=== PATIENT | female | born 1975 | race African-American/Black ===

== ENCOUNTER 2024-07-07 16:42 | Emergency (ER) | payer SELFPAY ==
[2024-07-07] VITALS (14 sets, daily range): BP systolic 163–186; BP diastolic 98–154; PULSE 78–96; RESP 15–22; TEMP 36.6–36.8; O2SAT 98–100
--- NOTE | ~2024-07-07 | XR_ITS ---
XR chest 2V Ordering provider: Sona Marie PA-C History: 48 years Female with . cp . Comparison: None. FINDINGS: MEDIASTINUM: The cardiac silhouette is not enlarged. LUNGS: No infiltrates, effusions or pneumothorax. OTHER: No free air under the diaphragm. Degenerative changes of the spine with loss of volume of T11 which is chronic. MRI evaluation advisedk pancreas are normal. IMPRESSION: No acute cardiopulmonary pathology. Reviewed, dictated and finalized at location A.
--- NOTE | 2024-07-07 16:55 | ECG_ITS ---
Test Date: 2024-07-07 17:18:52 Measurements Intervals [place] Rate: 88 P: 44 NE: 150 QRS: -3 QRSD: 89 T: 6 QT: 347 QTc: 420 Interpretive Statements SINUS RHYTHM POSSIBLE LEFT ATRIAL ENLARGEMENT [-0.1mV P-WAVE IN V1/V2] NONSPECIFIC ST-T WAVE CHANGES No previous ECG available for comparison Electronically Signed On 07-09-2024 15:13:55 CDT by Shin Corona M.D.
--- OUTSIDE RECORDS SUMMARY | 2024-07-07 17:04 | XMS_ITS | Clinical Summary ---
Author Organization [facility] Address [address] [place] [address] Care Team Providers Care Fast Food Assistant Restaurant Manager Name Role Phone None, Provider Primary Care Provider Unavaila ble Allergies No known active allergies Social History Tobacco Use Types Packs/Day Years Used Date Smoking Tobacco: Some Days Smokeless Tobacco: Never Alcohol Use Standard Drinks/Week Comments Yes 0 (1 standard drink = 0.6 oz pur e alcohol) occasional Comments No Sex and Gender Information Value Date Recorded Sex Assigned at Not on file Legal Sex Female 12:18 PM CDT Gender Identity Not on file Sexual Orientation Not on file Last Filed Vital Signs Vital Sign Reading Time Taken Comments Blood Pressure 143/98 06/05/2021 1:07 PM CDT Pulse 72 06/05/2021 1:07 PM CDT Temperature 37.3 C (99.2 F) 06/05/2021 11:27 AM CDT Respiratory Rate 18 06/05/2021 1:07 PM CDT Oxygen Saturation 100% 06/05/2021 1:07 PM CDT Inhaled Oxygen Concentration - - Weight 116 kg (255 lb 11.7 oz) 06/05/2021 11:27 AM CDT Height 162.6 cm (5' 4 ) 06/05/2021 11:27 AM CDT Body Mass Index 43.9 06/05/2021 11:27 AM CDT Plan of Treatment Health Maintenance Due Date Last Done Comments Cervical Cancer Screening Pap Smear (Age 30 to 64) Every 3 Years 1976 Colorectal Cancer Screening Colonoscopy (10 Years) 1976 Annual Physical 07/09/1979 Hepatitis C 1994 Hepatitis B Vaccines (1 of 3 - 19+ 3-dose series) 07/09/1995 Pneumococcal Vaccine: Pediatrics (0 to 5 Years) and At-Risk Patients (6 to 49 Years) (1 of 2 - PCV) 07/09/1995 Cervical Cancer Screening Pap with HPV Testing (Age 30 to 64) Every 5 Years 2006 Cervical Cancer Screening with HPV 2006 Mammogram Screening 2016 COVID-19 Vaccine ( - 2023- season) 2023 DTaP, Tdap and Td Vaccines (7 - Td or Tdap) 11/04/2025 11/05/2015, 12/06/1986, 10/28/1981, Additional history exists Meningococcal B Vaccine Aged Out No l onger eligible based on patient's age to complete this topic Meningococcal Vaccine Aged Out No cliff katlin eligible based on patient's age to complete this topic RSV Immunizations Under 20 Months Aged Out No longer eligible based on patient's age to complete this topic Insurance [place] [facility] Care Teams Fast Food Assistant Restaurant Manager Relationship Specialty Start Date End Date None, Provider, PCP - General 06/05/21
--- OUTSIDE RECORDS SUMMARY | 2024-07-07 17:04 | XMS_ITS | Referral Summary ---
Author Organization [facility] Address [address] [place] [address] Care Team Providers Care Second Language Tutor Name Role Phone Antonio Rodriguez MD Primary Care Provider + [phone] Ankit Smith MD Unavailable [phone] Allergies Active Allergy Reactions Criticality Noted Date Comments Aspirin Stomach upset Low Metoprolol Other (See comments) High 09/14/2021 Adrenal insufficiency Medications hydrOXYzine (ATARAX) 25 mg tabletIndicati ons:anxiety Take 1 tablet (25 mg total) by mouth 3 (three) times a day as needed for anxiety 45 tablet 03/12/19 22 Active diphenhydrAMIN E (BENADRYL) 25 mg capsule Take 1 tablet/capsul e (25 mg total) by mouth nightly as needed for allergies (takes prnd for sinus drainage) Active famotidine (PEPCID) 10 mg tabletIndicati ons:gastroesop hageal reflux disease Take 1 tablet (10 mg total) by mouth 2 (two) times a day as needed for heartburn Active NIFEdipine (NIFEdipine CC) 30 mg 24 hr tablet Take 1 tablet (30 mg total) by mouth daily Active oxyBUTYnin (DITROPAN) 5 mg tabletIndicati ons:Urinary frequency TAKE 1 TABLET (5 MG TOTAL) BY MOUTH DAILY. 30 tablet 06/16/19 25 025 Active oxyBUTYnin (DITROPAN) 5 mg tabletIndicati ons:Urinary frequency Take 1 tablet (5 mg total) by mouth daily 30 tablet 4 03/19/19 25 025 Discontinued Active Problems Problem Noted Date Diagnosed Date Abnormal vaginal bleeding 06/02/2023 Abnormal uterine bleeding 05/16/2023 Hyponatremia 03/11/2021 Essential (primary) hypertension 03/11/2021 Acute cystitis without hematuria 03/11/2021 Hypomagnesemia 03/11/2021 Hypokalemia 03/11/2021 Class 3 severe obesity due t o excess calories with serious comorbidity and body mass index (BMI) of 40.0 to 44.9 in adult 03/11/2021 COVID-19 virus infection 03/11/2021 Other chest pain 03/11/2021 Supraventricular tachycardia 12/25/2013 Anxiety 12/25/2013 Chronic pain 12/25/2013 Degeneration of intervertebral disc of cervical region 12/25/2013 Cervicalgia 09/28/2013 Lumbago 09/28/2013 Generalized anxiety disorder Hyperglycemia Leukocytosis Resolved Problems Problem Noted Date Diagnosed Date Resolved Date Ankle pain 01/07/2015 03/11/2021 Pain of foot 03/26/2014 03/11/2021 Social History Tobacco Use Types Packs/Day Years Used Date Smoking Tobacco: Every Day Cigars Started: 2012 Smokeless Tobacco: Never Tobacco Cessation:Ready to Q uit: Not Asked; Counseling Given: Not Answered AUDIT-C Answer Date Recorded Q1: How often do you have a drink containing alcohol? Monthly or less 06/02/2023 Q2: How many drinks containi ng alcohol do you have on a typical day when you are drinking? Patient does not drink Q3: How often do you have si x or more drinks on one occasion? Never 06/02/2023 Personal Safety Answer Date Recorded Have you ever been in or are you currently in a harmful physical or emotional relationship or is someone making you feel afraid or unsafe? Denies 06/02/2023 Comments No Sex and Gender Information Value Date Recorded Sex Assigned at Not on file Legal Sex Female 8:29 PM PERFUMER Gender Identity Not on file Sexual Orientation Not on file Last Filed Vital Signs Vital Sign Reading Time Taken Comments Blood Pressure 142/96 07/05/2023 9:50 AM CDT Pulse 48 06/02/2023 9:15 AM CDT Temperature 36.4 C (97.6 F) 06/02/2023 8:45 AM CDT Respiratory Rate 18 06/02/2023 9:15 AM CDT Oxygen Saturation 100% 06/02/2023 9:15 AM CDT Inhaled Oxygen Concentration - - Weight 108.4 kg (239 lb) 07/05/2023 9:50 AM CDT Height 162.6 cm (5' 4.02 ) 07/05/2023 9:50 AM CD T Body Mass Index 41 07/05/2023 9:50 AM CDT Plan of Treatment Not on file Procedures Procedure Name Priority Date/Time Associated Diagnosis Comments HIGH RISK HPV DNA DETECTION WITH GENOTYPING Routine 12/15/2022 2:05 PM CDT Abnormal uterine bleeding (AUB) from Last 3 Months or Most Recently Relevant to Health Maintenance Results * High Risk HPV DNA Detection with Genotyping (Molecular component) (12/15/2022 2:05 PM CDT) HPV HR 16 Not Detected Not Detected [facility] Comment:Testing performed by : [facility], [address] [place]., [address] HPV HR 18 Not Detected Not Detected MATTHEW Comment:Testing performed by : [facility], [address] [place]., [address] HPV HR Non 16/18 Not Detected Not Detected [facility]W Comment: Interpretive Data Nucleic acid amplification for detection of high-risk Human Papilloma virus (HPV) is performed by the Sherry Jacki 6800 HPV test. This assay specifically detects HPV-16 and HPV-18 genotypes. The following HPV genotypes are detected as high-risk HPV: HPV-31, 33, 35, ,39, 45, 51, 52, 56, 58, 59, 66, and 68. This assay has been approved by the [place] Food and Drug Administration for detection of HPV in cervical specimens collected by a physician using an endocervical brush/spatula or cervical broom and placed in the ThinPrep Pap Test PreservCyt collection containers. The performance characteristics of this test have been verified by the [facility] Molecular Infectious Disease laboratory. Correlate with separately reported cytology results, as applicable. Interpretive data last revised 22 Testing performed by: [facility], [address] [facility], [place]., [address] Endocervical 12/15/2022 2:05 PM CDT 12/16/2022 12:30 PM CDT Narrative MATTHEW CORRIGAN - 12/16/2022 11:29 PM CDT Clinical history and diagnosis->screen Testing type->Screening Last menstrual period (date if known)->11/29/22 Ankit Smith MD LAB BODY FLUIDS AND STO OLS ORDERABLES Final Result MATTHEW [address] [facility] [place] [address] [facility] from Last 3 Months or Most Recently Relevant to Health Maintenance Insurance [facility] Advance Directives For more information, please contact: [phone] * Full Code (Latest Code Status on File) Date Activated Date Inactivated Comments 03/11/2021 5:39 AM 03/12/2021 8:37 PM Care Teams Second Language Tutor Relationship Specialty Start Date End Date Antonio Rodriguez MD PCP - General Internal Medicine 03/11/22 Ankit Smith MD [address] [facility] [address] [address] Consulting Physician Obstetrics and Gynecology 06/02/23
--- OUTSIDE RECORDS SUMMARY | 2024-07-07 17:04 | XMS_ITS | Clinical Summary ---
Author Organization [facility] Address [address] [place] [address] Care Team Providers Care Patcher Wood Welder Name Role Phone Antonio Rodriguez MD Primary Care Provider + [phone] Ankit Smith MD Unavailable [phone] Allergies Active Allergy Reactions Criticality Noted Date [...] 01/07/2015 03/11/2021 Pain of foot 03/26/2014 03/11/2021 Surgical History Surgery Date Site/Laterality Comments MD DELIVERY ONLY three Section - (Added by TW Conv) MD NEUROPLASTY &/TRANSPOS MEDIAN NRV CARPAL TUNNE 02/28/2011 - 02/28/2012 Bilateral Neuroplasty Decompression Median Nerve At Carpal Tunnel - (Added by TW Conv) SECTION x3 TUBAL LIGATION FASCIOTOMY 03/11/2022 Left ENDOSCOPIC FASCIOTOMY - PLANTER HYSTEROSCOPY DILATION AND CURETTAGE OF UTERUS Medical History Medical History Date Comments Hypertension patient states h x of heart workup with echo and stress test all normal Anxiety takes med prn Allergic rhinitis occassionally uses flonase, Benadryl GERD (gastroesophageal reflu x disease) occassional with certain tapan ds, takes prn zantac Abnormal uterine bleeding (AUB) Wears glasses Last menstrual period (LMP) > 10 days ago 04/10/2023 Family History Medical History Relation Name Comments Hypertension Father Cancer Mother Family history of cancer - (Added by TW Conv) Hypertension Mother Family history of hypertension - (Added by TW Conv) Breast cancer Mother's Sister Ovarian cancer Neg Hx Relation Name Status Comments Father Alive Mother Alive Mother's Sister Social History Tobacco Use Types Packs/Day Years [...] on file Legal Sex Female 8:29 PM MANAGER PMO Gender Identity Not on file Sexual Orientation Not on file Obstetrics History Para Term AB IAB SAB Ectopic Multiple Livin g Live Births 3 3 3 Date Outcome GA Total Labor Labor/2nd/3rd Weight Sex Type Anes PTL Karine A1 A5 Name Clin Para Para Para Last Filed Vital Signs Vital Sign Reading [...] 07/05/2023 9:50 AM CDT Plan of Treatment Health Maintenance Due Date Last Done Comments Breast Cancer Screening-Mammogram 1976 Colon Cancer Screening-Colonoscopy 1976 Depression Screening 1976 Hepatitis C Screening 1976 Hepatitis B Screening 1994 Regular Well Visit/Exam 18-64 1994 Pneumococcal vaccine <65 (1 of 2 - PCV) 07/09/1995 Cervical Cancer Screening 12/16/20232022, 12/15/2022, 06/27/2013 Influenza Vaccine (Season Ended) 2024 DTaP/Tdap/Td Vaccine (7 - Td or Tdap) 11/04/2025 11/05/2015, 12/06/1986, 10/28/1981, Additional history exists Procedures Procedure Name Priority Date/Time Associated Diagnosis Comments HIGH RISK HPV DNA DETECTION WITH GENOTYPING Routine 12/15/2022 2:05 PM CDT Abnormal uterine bleeding (AUB) from Last 3 Months or Most Recently Relevant to Health Maintenance Results * High Risk HPV DNA Detection with Genotyping (Molecular component) (12/15/2022 2:05 PM CDT) HPV HR 16 Not Detected Not Detected [facility] Comment:Testing performed by : [facility], [address] [place]., [address] HPV HR 18 Not Detected Not Detected [facility]W Comment:Testing performed by : [facility], [address] [place]., [address] HPV HR Non 16/18 Not Detected Not [...] this test have been verified by the [facility] Molecular Infectious Disease laboratory. Correlate with separately reported cytology results, as applicable. Interpretive data last revised 22 Testing performed by: [facility], [address] [place]., [address] Endocervical 12/15/2022 2:05 PM CDT 12/16/2022 12:30 PM CDT Eladio CASTRO - 12/16/2022 11:29 PM CDT Clinical history and diagnosis->screen Testing type->Screening Last menstrual period (date if known)->11/29/22 Ankit Smith MD LAB BODY FLUIDS AND STO OLS ORDERABLES Final Result MATTHEW [address] [facility] Department [place] [address] [facility] from Last 3 Months or Most Recently Relevant to Health Maintenance Insurance [facility] Advance Directives For more information, please contact: [phone] * Full Code (Latest Code Status on File) Date Activated Date Inactivated Comments 03/11/2021 5:39 AM 03/12/2021 8:37 PM Care Teams Patcher Wood Welder Relationship Specialty Start Date End Date Antonio Rodriguez MD PCP - General Internal Medicine 03/11/22 Ankit Smith MD [address] [facility] [place] [address] Consulting Physician Obstetrics and Gynecology 06/02/23
--- NOTE | 2024-07-07 17:22 | ED_ITS ---
HPI - Chest Pain General Chief Complaint: Chest Pain Stated Complaint: Chest pain x 1 hour History of Present Illness HPI narrative: 48-year-old female with a reported history of anxiety, SVT, hypertension presents to the emergency department via EMS from work for concerns for anxiety/panic attack. Patient states today she has been rushing around running errands. When she got to work around 2:00 p.m, she was sitting in her desk and developed a fast heart rate, shortness of breath and ?tightness? in her left wrist. No injury trauma nor left wrist. She states she has history of anxiety and is concerned she may have been having an anxiety attack. She did have 2 cups of coffee prior to her symptom onset and states she had not had anything to eat today. She states this episode lasted approximately 8 minutes and has since resolved. She denies chest pain, cough, congestion, abdominal pain, numbness, weakness, tingling, lower extremity edema, history of VTE, hemoptysis. She has an IUD in place. Patient states she used to take hydroxyzine 3 times daily for anxiety but discontinued this for months ago because she felt better. She has not followed up with her PCP regarding this and has not notified her PCP she discontinued this medication. She has no complaints at the time of my evaluation other than ?tightness? in her left wrist. Denies chest pain or current dyspnea. Related Data Allergies Allergy/AdvReac Type Severity Reaction Status Date / Time No Known Allergies Allergy Verified 07/07/24 17:41 Review of Systems 2 Review of Systems: All systems reviewed & are unremarkable except as noted in HPI and below Exam 2 Narrative: GENERAL: Well-appearing, well-nourished, and in no acute distress. HEAD: Normocephalic, atraumatic. EYES: EOMI. ENT: Nares clear, no rhinorrhea or epistaxis. Mucous membranes moist. NECK: Supple. CHEST: Clear to auscultation. No respiratory distress. HEART: Regular rate and rhythm. No murmur heard. Normal peripheral pulses. ABDOMEN: Soft, nontender, nondistended, normal active bowel sounds. EXTREMITIES: Normal range of motion. No edema. No tenderness to the left wrist, no deformity, no edema. Full active and passive range of motion, no erythema or warmth. Radial pulse 2 +. Sensation intact. Radial, median and ulnar nerves are intact. SKIN: Warm, dry, no rash. NEURO: No focal deficits. Alert and oriented x3 Course Vital Signs Vital signs: Vital Signs Temperature 97.9 F 07/07/24 16:48 Pulse Rate 95 07/07/24 16:48 Respiratory Rate 16 07/07/24 16:48 Blood Pressure 172/108 H 07/07/24 16:48 Pulse Oximetry 100 07/07/24 16:48 Oxygen Delivery Room Air 07/07/24 16:48 Temperature 97.9 F 07/07/24 16:48 Pulse Rate 83 07/07/24 18:17 Respiratory Rate 21 H 07/07/24 18:17 Blood Pressure 163/104 H 07/07/24 19:27 Pulse Oximetry 100 07/07/24 17:40 Oxygen Delivery Room Air 07/07/24 17:40 MDM - Chest Pain MDM Narrative Medical decision making narrative: 48-year-old female with history of hypertension, SVT, presents to the emergency department for palpitations and shortness of breath that developed today while at work. Patient also reporting more ?tightness in her left wrist with no injury or trauma. Upon arrival to the ED patient is resting comfortably in the exam bed, smiling, pleasant and cooperative and in no acute distress. Triage vitals with hypertension of 172/108, otherwise unremarkable. She has no active complaints other than ?tightness? in her left wrist. She denies any chest pain or shortness of breath currently. EKG shows normal sinus rhythm with rate of 88 ppm, normal IN interval, normal QRS duration, normal QTC, nonspecific T-wave abnormality, no acute ischemic changes. Troponin undetectable x2. CBC without leukocytosis or anemia. Chemistries with mild elevation in creatinine of 1.08, normal BUN, patient is given a L of fluids for dehydration. No electrolyte derangements. Mag within normal limits. Lipase and UA are normal. is negative. Chest x-ray shows no acute cardiopulmonary findings. Perc rule negative. Patient updated on results. She received IV fluids and Ativan with improvement in symptoms and resting comfortably in exam bed. Tightness in wrist resolved., Suspect anxiety causing sx and likely carpopedal spasm, verses paroxysmal episode of SVT, however she has had no arrhythmias in the emergency department. Advised her to continue her home medications, will provide hydroxyzine p.r.n. advised to follow-up closely with her PCP. Discussed strict ED return precautions. She is agreeable with the plan verbalized understanding. Discharged in stable condition Lab Data 07/07/24 17:20 07/07/24 17:20 Labs: Lab Results 07/07/24 07/07/24 Range/Units 17:20 17:26 WBC 9.1 (4.5-10.0) K/mm3 RBC 4.40 (4.2-5.4) M/mm3 Hgb 14.7 (12.0-15.0) g/dL Hct 43.2 (37.0-47.0) % MCV 98.2 (80-100) fl MCH 33.4 (26-34) pg MCHC 34.0 (32-36) g/dl RDW 13.1 (11.5-14.5) % Plt Count 180 (150-375) k/mm3 MPV 10.4 (7.4-10.4) fl Immature Gran % (Auto) 0.2 (0-0.5) % Neut % (Auto) 73.9 H (45.5-73.1) % Lymph % (Auto) 14.9 L (18.3-44.2) % [place] % (Auto) 10.2 H (2.6-8.5) % Eos % (Auto) 0.4 (0-4.4) % Baso % (Auto) 0.4 (0.2-1.2) % Lymph # (Auto) 1.36 (0.9-3.2) K/mm3 [place] # (Auto) 0.9 H (0.1-0.6) K/mm3 Eos # (Auto) 0.0 (0-0.3) K/mm3 Baso # (Auto) 0.0 (0.0-0.1) K/mm3 Abs Immat Gran (auto) 0.02 (0.00-0.031) K/mm3 Absolute Neuts (auto) 6.7 (1.3-6.7) K/mm3 Absolute Nucleated RBC 0.000 (0.0-0.012) K/mm3 Nucleated RBC % 0.0 (0.0-0.2) % PT 13.4 (11.1-14.7) Seconds INR 1.0 APTT 25.4 (22.3-36.8) Seconds Sodium 138 (137-145) mmol/L Potassium 4.1 (3.4-5.0) mmol/L Chloride 107 (98-107) mmol/L Carbon Dioxide 24 (22-30) mmol/L Anion Gap 7 (4-12) mmol/L BUN 16 (7-17) mg/dL Creatinine 1.08 H (0.7-1.0) mg/dL Estim Creat Clear Calc 80 ml/min Estimated GFR 54 L (59 - ) Glucose 84 (65-110) mg/dL Calcium 9.0 (8.4-10.2) mg/dL Magnesium 2.3 (1.6-2.3) mg/dL Total Bilirubin 0.5 (0.2-1.3) mg/dL AST 35 (14-36) U/L ALT 19 (6-35) U/L Alkaline Phosphatase 59 (38-126) U/L Troponin I < 0.012 (0.000-0.034) ng/mL NT-Pro-B Natriuret Pep 56 (19.9-100) pg/mL Total Protein 8.0 (6.3-8.2) g/dL Albumin 4.3 (3.5-5.1) g/dL Lipase 72 (23-300) U/L Urine Color Yellow (Yellow) Urine Appearance Clear (Clear) Urine pH 6.5 (5.0-9.0) Ur Specific [place] 1.003 (1.001-1.035) Urine Protein Negative (Negative) mg/dL Urine Glucose (UA) Negative (Negative) mg/dL Urine Ketones Negative (Negative) mg/dL Ur Blood (Man) Negative (Negative) Urine Nitrate Negative (Negative) Urine Bilirubin Negative (Negative) Urine Urobilinogen 0.2 (<2.0) mg/dL Leukocyte Esterase Rfl Negative (Negative) ANGELIQUE/UL POC Urine HCG, Qual Negative (Negative) Discharge Plan Discharge Clinical Impression: Anxiety Patient Disposition: Home Condition: Stable Instructions: Antibiotic Form, Anxiety (ED) Additional Instructions: You were evaluated in the emergency department for concerns for anxiety attack. Her workup here is reassuring, you did look slightly dehydrated nor given IV fluids. Please make sure to drink plenty fluids including water, Gatorade and Pedialyte. Please take hydroxyzine as needed. Follow-up closely with her primary care provider. Return to the emergency department if you develop chest pain, shortness of breath, palpitations, or other concerning symptoms. Patient Language: Irish Prescriptions: New hydroxyzine HCl 25 mg tablet 25 mg PO QID PRN (Reason: anxiety) Qty: 14 0RF Follow-up/Referrals: PHYSICIAN,[employer] [Primary Care Provider] -
[2024-07-07 17:28] LABS: BEDSIDEPREGUCG Negative (Negative)
[2024-07-07 17:34] LABS: Basophils Percent Auto 0.4 % (0.2-1.2); Eosinophils Percent Auto 0.4 % (0-4.4); Hematocrit 43.2 % (37.0-47.0); Hemoglobin 14.7 g/dL (12.0-15.0); Immature Granulocyte Absolute 0.02 K/mm3 (0.00-0.031); Immature Granulocyte Percent A 0.2 % (0-0.5); Lymphocytes Absolute Auto 1.36 K/mm3 (0.9-3.2); Lymphocytes Percent Auto 14.9 % (18.3-44.2); Mean Corpuscular Hemoglobin 33.4 pg (26-34); Mean Corpuscular Volume 98.2 fl (80-100); Mean Platelet Volume 10.4 fl (7.4-10.4); Monocytes Absolute Auto 0.9 K/mm3 (0.1-0.6); Monocytes Percent Auto 10.2 % (2.6-8.5); Neutrophils Absolute Auto 6.7 K/mm3 (1.3-6.7); Neutrophils Percent Auto 73.9 % (45.5-73.1); Platelet Count Result 180 k/mm3 (150-375); Red Cell Distribution Width 13.1 % (11.5-14.5); White Blood Count 9.1 K/mm3 (4.5-10.0)
[2024-07-07 17:35] LABS: Add Urine Microscopic? NO; Appearance Urine Clear (Clear); Bilirubin Urine Negative (Negative); Blood Urine Negative (Negative); Color Urine Yellow (Yellow); Glucose Urine UA Negative (Negative); Ketones Urine Negative (Negative); Leukocyte Esterase Ur Negative LEU/UL (Negative); Nitrate Urine Negative (Negative); Protein Urine Negative (Negative); Specific Grav Ur 1.003 (1.001-1.035); Urobilinogen Urine 0.2 mg/dL (<2.0); pH Urine 6.5 (5.0-9.0)
[2024-07-07] MEDS: LORazepam INJ (*CRX) 2 MG/ML VIAL 0.5 MG IV PUSH (17:41)
[2024-07-07 17:46] LABS: Alanine Aminotransferase 19 U/L (6-35); Albumin Level 4.3 g/dL (3.5-5.1); Alkaline Phosphatase 59 U/L (38-126); Anion Gap 7 mmol/L (4-12); Aspartate Amino Transferase 35 U/L (14-36); Bilirubin,Total 0.5 mg/dL (0.2-1.3); Blood Urea Nitrogen 16 mg/dL (7-17); Carbon Dioxide 24 mmol/L (22-30); Chloride 107 mmol/L (98-107); Estimated CRCL calculation 80 ml/min; Estimated Glomerular Filt Rate 54; Glucose 84 mg/dL (65-110); Lipase 72 U/L (23-300); Potassium 4.1 mmol/L (3.4-5.0); Sodium 138 mmol/L (137-145)
[2024-07-07 17:48] LABS: Prothrombin Time 13.4 Seconds (11.1-14.7)
[2024-07-07 17:49] LABS: Partial Thromboplastin Time 25.4 Seconds (22.3-36.8)
[2024-07-07 17:58] LABS: NT Pro B Type Natriuretic Pept 56 pg/mL (19.9-100); Troponin I < 0.012 ng/mL (0.000-0.034)
[2024-07-07] MEDS: SODIUM CHLORIDE 0.9% IV 1,000 ML 999 ML IV CONT (18:53)
[2024-07-07 19:16] LABS: Magnesium 2.3 mg/dL (1.6-2.3)
== END 2024-07-07 20:30 | disposition home or self-care (01) ==
PROVIDERS: Emergency Provider Physician Assistant
DX: F41.9 Anxiety disorder, unspecified (principal); I10 Essential (primary) hypertension; R94.31 Abnormal electrocardiogram [ECG] [EKG]
CPT/HCPCS: 36415; 71046; 80053; 81003; 81025; 83690; 83735; 83880; 84484; 85025; 85610; 85730; 93005; 96361; 96374; 99284; J2060; J7030